=== PATIENT | male | born 2000 | race Hispanic/Latino ===

== ENCOUNTER 2022-10-11 11:39 | Outpatient (CLI) | payer BC | END 2022-10-11 11:40 | disposition home or self-care (01) | LOC: BURRAD 11:39 | PROVIDERS: ATTEND Physician Assistant | DX: M25.552 Pain in left hip (principal) ==

== ENCOUNTER 2024-02-21 10:12 | Outpatient (CLI) | payer BC, OTHER | END 2024-02-21 10:13 | disposition home or self-care (01) | LOC: BURRAD 10:12 | PROVIDERS: ATTEND Physician Assistant | DX: S09.92XA Unspecified injury of nose, initial encounter (principal); Z96.82 Presence of neurostimulator | CPT/HCPCS: 70160 ==